=== PATIENT | female | born 1945 | race Caucasian/White ===

== ENCOUNTER → 2023-09-09 08:16 | Outpatient (REF) | payer MEDICARE, OTHER, SELFPAY | LOC: RAD 08:16 | PROVIDERS: ATTENDING PHYSICIAN Internal Medicine | DX: M85.80 Other specified disorders of bone density and structure, unspecified site (principal); M85.88 Other specified disorders of bone density and structure, other site | CPT/HCPCS: 77080 ==

== ENCOUNTER → 2023-11-15 13:47 | Outpatient (REF) | payer MEDICARE, OTHER, SELFPAY | LOC: WDC 13:47 | PROVIDERS: ATTENDING PHYSICIAN Internal Medicine | DX: Z12.31 Encounter for screening mammogram for malignant neoplasm of breast (principal) | CPT/HCPCS: 77063; 77067 ==

== ENCOUNTER → 2024-02-10 14:55 | Outpatient (REF) | payer MEDICARE, OTHER, SELFPAY | LOC: MRI 3T 14:55 | PROVIDERS: ATTENDING PHYSICIAN Pain Medicine Interventional Pain Medicine; FAMILY PHYSICIAN Internal Medicine | DX: M54.16 Radiculopathy, lumbar region (principal) | CPT/HCPCS: 72148 ==

== ENCOUNTER → 2024-02-28 14:34 | Outpatient (REF) | payer MEDICARE, OTHER, SELFPAY | LOC: RAD 14:34 | PROVIDERS: ATTENDING PHYSICIAN Physical Medicine & Rehabilitation; FAMILY PHYSICIAN Internal Medicine | DX: M25.551 Pain in right hip (principal); M25.552 Pain in left hip | CPT/HCPCS: 73523 ==

== ENCOUNTER 2024-09-02 12:34 | Emergency (ER) | payer MEDICARE, OTHER, SELFPAY ==
[2024-09-02 12:35] VITALS: BP 164/69
--- NOTE | 2024-09-02 13:34 | ED.GENMED ---
History of Present Illness
General
Chief Complaint: Fall
Source: patient
Exam Limitations: none
Time Seen by Provider: 09/02/24 13:29
History of Present Illness
History of Present Illness:
See MDM
Past History
Past History
ED Past Medical History: GERD, Hypothyroidism and Other (urinary freq, IBS)
Social History
Tobacco: Non-smoker
Personal:
Living: with family
Phy Exam
Physical Exam
Physical Exam:
See MDM
Course
Orders/Labs/Results
Orders:
Orders
09/02/24 13:33
CT Head W/o Iv Contrast Urgent
Comment:
Reason For Exam: R frontal head injury
Knee, Left 4 or More Views [CR Knee - Left 4 Or More View*] Urgent
Comment:
Reason For Exam: left knee pain after fall
Vital Signs
Initial and Last Documented VS:
Initial Vital Signs
Temp Pulse Resp BP Pulse Ox
98.4 F 67 16 164/69 99
09/02/24 12:35 09/02/24 12:35 09/02/24 12:35 09/02/24 12:35 09/02/24 12:35
Last Documented Vital Signs
Temp Pulse Resp BP Pulse Ox
98.4 F 67 16 164/69 99
09/02/24 12:35 09/02/24 12:35 09/02/24 12:35 09/02/24 12:35 09/02/24 12:35
MDM/Problems Addressed
Differential Diagnosis Includes:
HPI and MDM Narrative:
78-year-old female presenting for evaluation after a fall. She slipped in the bathroom last night. She landed on her right knee and hit the right side of her head. Due to family's concern, she came in for evaluation. She denies any significant
headache. She denies nausea or vomiting. Patient able to ambulate without difficulty. Given the fall and injury, will obtain CT head. Will obtain left knee x-ray as well
Physical exam
General: Well appearing and non-toxic
HEENT: protecting airway. EOMI. No scalp hematoma noted
Neck: appears supple
CV: No evidence of cyanosis
Resp: No accessory muscle use
Abd: Non-distended
Extremities: No deformities. Mild tenderness to right anterior knee without effusion. Joint otherwise stable
Neuro: alert
Psych: Normal affect
Skin: Intact
Problems Addressed including Acute and Chronic Conditions affecting care:
1. Head injury
Acuity: acute
Prognosis: stable
Details: Given injury and age, will obtain CT head
2. Left knee injury
Acuity: acute
Prognosis: stable
Details: Will obtain x-ray
Updates
X-ray negative for fracture. CT head negative. Patient ambulate without difficulty and feels comfortable going home. Patient given verbal discharge instructions
Differential Diagnosis (but not limited to): Concussion, hematoma, intracranial hemorrhage
Testing considered: Neck x-ray but she denies neck pain
Drug therapy (if applicable): OTC meds, please see d/c instruction regarding Rx drugs
Amount and/or Complexity of Data Reviewed
Clinical info obtained from: Patient
External data reviewed: N/A
Labs I independently reviewed (but not limited to): N/A
Radiology: X-ray independently reviewed: Left knee x-ray without fracture
The CT scan was personally and independently reviewed. In addition, official CT report reviewed.
Pulse Ox: not hypoxic
EKG independently reviewed: N/A
Nursing Specialist: N/A
Critical Care: N/A
Risk of Complication:
Social Determinants of health: Good social support
Discussed with other providers: N/A
Escalation of Care includes Admit/Obs: After being observed in the Emergency Department, pt stable for discharge.
Occasional wrong word or 'sound a like' substitutions may have occurred due to the inherent limitations of voice recognition software. Read the chart carefully and recognize, using context, where substitutions have occurred.
*Critical Care Note
Total Time (30-74mins, 75-104mins- exclusive of procedures): Not Applicable
ED Attending Note
-
Portions of this chart may have been created with voice recognition software.� Occasional wrong word or��sound alike� substitutions may have occurred due to the inherent limitations of voice recognition software.
Discharge Plan
Departure
Patient Disposition: Home (Routine Discharge)
Date of Disposition: 09/02/24
Time of Disposition: 16:43
Patient with high blood pressure during this ER visit?: Yes
Discharge Problem:
Head injury, Contusion of knee, left
Instructions: Head Injury in Adults (DC), BLOOD PRESSURE
Prescriptions:
No Action
atorvastatin 10 MG tablet
10 mg PO QPM
acetaminophen [Tylenol Extra Strength] 500 MG tablet
1,000 mg PO Q6HPRN PRN (Reason: pain)
levothyroxine 75 MCG tablet
75 mcg PO DAILY AT 0700
tretinoin [Retin-A] 15 GM gel
1 applic topical DAILY
Patient Comments:
0.05%
omeprazole 20 MG capsule,delayed release(DR/EC)
20 mg PO DAILY
estradiol 1 APPLIC cream
1 applic VAG MOWEFR
cholecalciferol (vitamin D3) 1,000 UNITS tablet
1,000 units PO DAILY
calcium carbonate-vitamin D3 1 EACH capsule
1 ea PO DAILY
mirabegron [Myrbetriq] 50 MG tablet extended release 24 hr
50 mg PO QPM
mupirocin 1 APPLIC ointment
1 applic topical BID Qty: 1 0RF
Patient Comments:
Patient administered this medication @ 0500 this morning 02/28/21. Patient started this treatment on 02/25/21 in the morning.
oxycodone 5 MG tablet
5 mg PO Q6HPRN PRN (Reason: moderate-severe pain) Qty: 30 0RF
Rx Instructions:
1 tab moderate pain or 2 if pain severe
Dx total joint replacement
ongoing therapy
celecoxib 200 MG capsule
200 mg PO DAILY Qty: 30 0RF
Rx Instructions:
take with food
aspirin 325 MG tablet,delayed release (DR/EC)
325 mg PO DAILY 30 Days Qty: 30 0RF
Rx Instructions:
one daily for 30 days to prevent blood clots, start tonight (02/28)
gabapentin 300 MG capsule
300 mg PO BID Qty: 60 0RF
Referrals:
Michael Naranjo MD [Family Provider, Internal Medicine]
Activity Restrictions/Additional Instructions:
Please return for any worsening symptoms.
You may return at any time if you have further concerns.
Please follow up with your doctor at the first available appointment, preferably this week.
Thank you for choosing [facility].
Interventions
Interventions:
*Risk Screen - Suicide Last Done: 09/02/24 14:28
*General Assessment Last Done: 09/02/24 14:28
*Neglect/Abuse Screening Last Done: 09/02/24 14:28
*ED COVID-19 Vaccine History Last Done: 09/02/24 14:28
ED-Musculoskeletal Assessment Last Done: 09/02/24 14:28
ED- Neurological Assessment Last Done: 09/02/24 14:28
ED-Skin Assessment Last Done: 09/02/24 14:28
Discharge Date and Time
Print Language: BRUNEIAN
== END 2024-09-02 16:47 | disposition home or self-care (01) ==
LOC: EMR 12:34
PROVIDERS: EMERGENCY PHYSICIAN Student in an Organized Health Care Education/Training Program; FAMILY PHYSICIAN Internal Medicine
DX: S09.90XA Unspecified injury of head, initial encounter (principal); S80.02XA Contusion of left knee, initial encounter; W19.XXXA Unspecified fall, initial encounter; K21.9 Gastro-esophageal reflux disease without esophagitis; E03.9 Hypothyroidism, unspecified; K58.9 Irritable bowel syndrome, unspecified
CPT/HCPCS: 99284; 70450; 73564

== ENCOUNTER → 2024-12-25 14:43 | Outpatient (REF) | payer MEDICARE, OTHER, SELFPAY | LOC: WDC 14:43 | PROVIDERS: ATTENDING PHYSICIAN Internal Medicine | DX: Z12.31 Encounter for screening mammogram for malignant neoplasm of breast (principal) | CPT/HCPCS: 77063; 77067 ==

== ENCOUNTER → 2025-01-24 13:56 | Outpatient (REF) | payer MEDICARE, OTHER, SELFPAY | LOC: RAD 13:56 | PROVIDERS: ATTENDING PHYSICIAN Physical Medicine & Rehabilitation; FAMILY PHYSICIAN Internal Medicine | DX: M54.16 Radiculopathy, lumbar region (principal) | CPT/HCPCS: 72114 ==